=== PATIENT | female | born 1945 | race Caucasian/White ===

== ENCOUNTER 2024-09-25 16:16 | Emergency (ER) | payer BC, MEDICAID ==
[~2024-09-25] VITALS: Ht 160 cm; Wt 58.9 kg
[2024-09-25 16:23] VITALS: TEMP 98.4
[2024-09-25 17:15] LABS: BASOPHILS # (AUTO) 0.1 X10'3 (0-0.2); EOSINOPHILS # (AUTO) 0.3 X10'3 (0-0.9); HEMATOCRIT 33.9 % (35.0-45.0); HEMOGLOBIN 11.4 g/dl (12.0-16.0); LYMPHOCYTES # (AUTO) 2.2 X10'3 (1.1-4.8); LYMPHOCYTES % (AUTO) 29.4 % (21-51); MEAN CORPUSCULAR HEMOGLOBIN 32.2 PG (27.0-31.0); MEAN CORPUSCULAR HGB CONC 33.7 g/dL (33.0-36.5); MEAN CORPUSCULAR VOLUME 95.7 FL (78-98); MEAN PLATELET VOLUME 10.4 FL (7.4-10.4); MONOCYTES # (AUTO) 0.5 X10'3 (0-0.9); MONOCYTES % (AUTO) 6.8 % (2-12); NEUTROPHILS # (AUTO) 4.4 X10'3 (1.8-7.7); NEUTROPHILS % (AUTO) 58.8 % (42-75); PLATELET COUNT 197 X10'3 (140-440); RED BLOOD COUNT 3.54 X10'6 (4.20-5.60); RED CELL DISTRIBUTION WIDTH 17.9 % (11.5-14.5); WHITE BLOOD COUNT 7.5 X10'3 (4.5-11.0)
[2024-09-25 17:30] LABS: ALANINE AMINOTRANSFERASE 12 U/L (12-78); ALBUMIN 4.1 G/DL (3.4-5.0); ALBUMIN/GLOBULIN RATIO 1.5 (1.1-1.5); ALKALINE PHOSPHATASE 93 IU/L (46-116); ANION GAP 12 (8-16); ASPARTATE AMINO TRANSFERASE 10 U/L (10-37); BILIRUBIN,TOTAL 0.6 MG/DL (0.1-1.0); BLOOD UREA NITROGEN 15 MG/DL (7-18); BUN/CREATININE RATIO 22.7 (10.0-20.0); CALCIUM 9.2 MG/DL (8.5-10.1); CHLORIDE 106 MMOL/L (99-107); CREATININE 0.66 MG/DL (0.40-0.90); GLUCOSE 151 MG/DL (70-104); LIPASE 30 U/L (16-77); POTASSIUM 3.5 MMOL/L (3.5-5.1); SODIUM 147 MMOL/L (135-145); TOTAL PROTEIN 6.8 G/DL (6.4-8.2); eCRCL 60 ML/MIN; eGFR 87 ML/MIN
[2024-09-25 17:36] LABS: BILIRUBIN,URINE NEGATIVE (Neg); CLARITY,URINE CLEAR (Clear); COLOR,URINE YELLOW (Yellow); GLUCOSE, URINE NEGATIVE (Neg); KETONES,URINE TRACE mg/dl (Neg); LEUKOCYTE ESTERASE ,URINE NEGATIVE (Neg); NITRITES, URINE NEGATIVE (Neg); OCCULT BLOOD,URINE NEGATIVE (Neg); PROTEIN,URINE NEGATIVE (Neg); UROBILINOGEN,URINE 0.2 E.U/dL (0.2-1.0)
[2024-09-25 17:50] LABS: UA COLLECTION TYPE CLN CATCH MIDSTREAM
[2024-09-25 19:35] VITALS: BP 192/80; PULSE 80; O2SAT 98
--- NOTE | 2024-09-25 19:39 | Physician Documentation ---
History of Present Illness ~ Chief Complaint: Abdominal Pain Stated Complaint: ABD PAIN Time Seen by MD: 19:38 Mode of Arrival: POV, Ambulatory HPI Patient presents to the emergency room for evaluation of one month history of left-sided abdominal pain. Tenderness to palpation. No traumas reported. She states she has seen her provider who has done labs and imaging with no di agnosis. She states that it has gotten worse since that time and she has developed a mass to her left abdominal wall. She was denies history of hernia. Bowel movements regular however she notes any time she eats dairy this past month she has diarrhea. No fevers Medication Reconciliation Allergies: Coded Allergies: Penicillins (Unverified Allergy, Unknown, 09/25/24) naproxen (Unverified Adverse Reaction, Mild, vomiting, 09/25/24) Review of Systems ROS All review of systems negative except as per HPI Physical Exam Vital Signs: Temperature: 98.4, Source: Oral, Heart Rate: 80, Respiratory Rate: 16, BP: 192/80, Pulse Oximetry: 98, Weight: 58.900 Oxygen Flow Rate: 0 Physical Exam General: Patient is awake, alert, oriented x4 in no acute distress Head: Normocephalic and atraumatic. Eyes: Conjunctival normal. EOMI. PERRL. ENT: Mucous membranes moist. Neck: Supple, trachea is midline. Chest: Clear to auscultation bilaterally without rales, rhonchi, or wheezes. There is no accessory muscle use or retractions. Cardiac: RRR without murmurs, gallops, or rubs. Abd: Soft, nondistended, tenderness to palpation to left-sided abdominal wall mass measuring 5 cm x 5 cm Progress Results/Orders Results/Orders Orders - DASHAWN SUAZO MD Ct Abdomen Pelvis (09/25/24 20:00) Completed Orders - DASHAWN SUAZO MD Normal Saline 1000ml (Sodium Chloride 10 (09/25/24 19:45) Ct Abdomen Pelvis (09/25/24 20:00) Acetaminophen 325mg Tablet (Tylenol Tabl (09/25/24 19:45) Ketorolac Trometh 15mg/Ml Vial (Toradol (09/25/24 19:45) Iohexol 300mg/Ml 100ml Inj. (Omnipaque-3 (09/25/24 20:11) Medications Received in ER Medications (Trade) Dose Ordered Sig/Augustin Route PRN Reason Start Time Stop Time Status Last Admin Dose Admin Sodium Chloride 1,000 ml @ 1,000 mls/hr ONCE ONCE IV 09/25/24 19:45 09/25/24 20:44 DC 09/25/24 20:36 1,000 MLS/HR (Tylenol tablet) 650 mg ONCE ONCE PO 09/25/24 19:45 09/25/24 19:46 DC 09/25/24 20:36 650 MG (Toradol injection) 10 mg ONCE ONCE IV 09/25/24 19:45 09/25/24 19:46 DC 09/25/24 20:36 10 MG Vital Signs 09/25/24 09/25/24 09/25/24 09/25/24 16:23 19:30 19:35 20:36 Temp 98.4 Pulse 91 80 Resp 16 16 16 18 B/P (MAP) 192/73 192/80 (117) Pulse Ox 98 98 O2 Flow Rate 0 Laboratory Tests Test 09/25/24 16:27 09/25/24 16:49 Urine Specimen Description Cln catch midstream Urine Color Yellow Urine Clarity Clear Urine pH 6.0 Urine Specific [place] >=1.030 Urine Protein Negative Urine Glucose (UA) Negative Urine Ketones Trace H Urine Occult Blood Negative Urine Nitrite Negative Urine Bilirubin Negative Urine Urobilinogen 0.2 Urine Leukocyte Esterase Negative Urine Culture Indicated Not ind Volume Urine Centrifuged 1 ml Urine Comment Low volume White Blood Count 7.5 Red Blood Count 3.54 L Hemoglobin 11.4 L Hematocrit 33.9 L Mean Corpuscular Volume 95.7 Mean Corpuscular Hemoglobin 32.2 H Mean Corpuscular Hemoglobin Concent 33.7 Red Cell Distribution Width 17.9 H Platelet Count 197 Mean Platelet Volume 10.4 Neutrophils (%) (Auto) 58.8 Lymphocytes (%) (Auto) 29.4 Monocytes (%) (Auto) 6.8 Eosinophils (%) (Auto) 4.0 Basophils (%) (Auto) 1.0 Neutrophils # (Auto) 4.4 Lymphocytes # (Auto) 2.2 Monocytes # (Auto) 0.5 Eosinophils # (Auto) 0.3 Basophils # (Auto) 0.1 CBC Comment Sodium Level 147 H Potassium Level 3.5 Chloride Level 106 Carbon Dioxide Level 29.0 Anion Gap 12 Blood Urea Nitrogen 15 Creatinine 0.66 Estimated GFR/1.73 m2 87 BUN/Creatinine Ratio 22.7 H Glucose Level 151 H Calcium Level 9.2 Total Bilirubin 0.6 Aspartate Amino Transf (AST/SGOT) 10 Alanine Aminotransferase (ALT/SGPT) 12 Alkaline Phosphatase 93 Total Protein 6.8 Albumin 4.1 Globulin 2.7 Albumin/Globulin Ratio 1.5 Lipase 30 Chemistry Comments Medical Decision Making Findings Patient presents to the emergency room with flank pain as per HPI. Differentials include but are not limited to shingles, hematoma, lipoma, kidney stone therefore emergent labs and imaging indicated. Labs and imaging re assuring. Unknown cause for patient's pain. Discussed pain management. The need to follow up with her doctor also discussed Departure Disposition: 01 HOME / SELF CARE / HOMELESS Impression: Primary Impression: Abdominal pain Condition: Stable Discharge Instructions: Abdominal Pain (Nonspecific) Referrals: NO PRIMARY CARE PROVIDER (PCP) Signature Scribe Signature: No scribe Attestation: The note accurately reflects work and decisions made by me.Dashawn Suazo MD 09/25/24 22:23 DASHAWN SUAZO MD Sep 25, 2024 19:39
[2024-09-25] MEDS ORDERED: iohexol 300mg/ml 100ml inj. ONE (20:11)
[2024-09-25 20:36] VITALS: RESP 18
[2024-09-25] MEDS: ketorolac trometh 15mg/ml vial 15 MG/ML ML IV ONE (20:36)
[2024-09-25] MEDS: acetaminophen 325mg tablet PO ONE (20:36)
[2024-09-25] MEDS: normal saline 1000ml 1,000 ML IV ONE (20:36)
--- NOTE | 2024-09-25 21:54 | RADIOLOGY REPORT ---
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 During the uneventful, intravenous administration of c ontrast material, multislice data acquisition was obtained through the abdomen and pelvis. The data s et was subsequently reconstructed into axial images. Images reviewed on a wrist examination is an exa mination of axial and multiplanar reformations using a variety of window levels and settings. RADIATION DOSE: DLP 731.5 mGy.cm; CTDI vol 15.42 mGy. Findings: Lungs: The lung bases are clear. Heart: No cardiomegaly or pericardial effusion. Liver: The liver measures 18.0 cm in craniocaudal dimension. Gallbladder: Cholecystectomy. Spleen: The spleen measures 15.2 cm in length. Pancreas: Small pancreatic lipoma. Adrenals: Unremarkable Kidneys: Unremarkable GI tract: Diffuse wall thickening of the descending and rectosigmoid colons. : Unremarkable. Vasculature: Moderate aortoiliac atherosclerosis. Lymphadenopathy: Absent Peritoneum: No ascites Musculoskeletal: Moderate multilevel degenerative changes of the thoracolumbar spine. Posterior spina l fusion with intervertebral disc spacer at L2-L3. Soft tissues: Unremarkable. No abdominal wall masses appreciated. No abnormal enhancement. Impression: 1. No acute abdominopelvic abnormalities. 2. Diffuse wall thickening of the descending and rectosigmoid colons. Correlate for colitis. 3. No abnormal enhancement or abdominal wall masses. 4. Hepatosplenomegaly.
== END 2024-09-25 22:43 | disposition home or self-care (01) ==
LOC: ER 16:18
DX: R10.12 Left upper quadrant pain (principal); R19.00 Intra-abdominal and pelvic swelling, mass and lump, unspecified site; R00.2 Palpitations; R19.7 Diarrhea, unspecified; Z88.0 Allergy status to penicillin; Z88.6 Allergy status to analgesic agent
CPT/HCPCS: 36415; 74177; 80053; 81003; 83690; 85025; 96361; 96374; 99285; J1885; J7030; Q9967